=== PATIENT | female | born 1975 ===

== ENCOUNTER 2023-07-12 16:19 | Emergency (ER) | payer OTHER, SELFPAY ==
[2023-07-12 16:21] VITALS: BP 118/68; BMI 23.9
--- NOTE | 2023-07-12 16:55 | ED.GENMED ---
History of Present Illness
General
Chief Complaint: Crisis Evaluation
Source: patient
Exam Limitations: altered mental status
Time Seen by Provider: 07/12/23 16:41
Nursing documentation reviewed up to this point in time: agreed with
Travel History
Have you had any contact with someone who has COVID-19?: No
Do you have any symptoms of coronavirus? Fever > 100 degrees, chills, cough, shortness of breath, sore throat, loss of taste or smell, muscle aches, or headache?: No
History of Present Illness
History of Present Illness:
48-year-old female presents for medical clearance for psychiatric evaluation apparently told someone that she did not want to live anymore she tells me she does not need to take her psychiatric meds anymore does admit to drinking and smoking, she is
wearing a police uniform tells me is her sons, denies abdominal pain, denies fever
Past History
Past History
ED Past Medical History: Psychiatric
Social History
Tobacco: Smoker
Alcohol: Occasional
Drug: None
Living: with family
Review of Systems
Review of Systems
All Other Systems: Not applicable
Constitutional: Denies fever
ABD/GI: Reports no symptoms
: Reports no symptoms
Musculoskeletal: Reports no symptoms
Skin: Reports no symptoms
Psychiatric: Reports depression; Denies anxiety
Phy Exam
Physical Exam
Physical Exam:
Physical Exam
General: 48 female flat affect
Neck: No jaundice
Heart: Regular
Lungs: no acute respiratory distress.
Neuro: alert and oriented moves all extremities
Skin: no rash
Psychiatric: Affect is flat, appears depressed cooperative
Extremities: no edema.
Course
Orders/Labs/Results
Orders:
Orders
07/12/23 16:53
IV Insert/Care/Rem.- Treatment PRN
07/12/23 16:54
Crisis Consult Routine
Reason for Consult: 302
07/12/23 17:07
Acetaminophen Urgent
Alcohol Urgent
Complete Blood Count/With Diff Urgent
Comprehensive Metabolic Panel Urgent
Salicylate Urgent
07/12/23 18:11
Urine Drug Abuse Screen Urgent
Date Specimen was Collected: 07/12/23
Time Specimen was Collected: 18:07
07/13/23 00:46
Acetaminophen [Tylenol] 1,000 mg .ROUTE .STK-MED ONE
07/13/23 00:48
Acetaminophen [Tylenol] 1,000 mg PO NOW STA
07/13/23 06:23
PSYCHIATRY CONSULT Urgent
Consulting Provider: Raven Bernal
Was physician already notified: Yes
Reason for consult: suicidal ideation
07/13/23 13:53
Lorazepam [Ativan] 1 mg PO Q8HPRN PRN
07/13/23 22:00
Olanzapine [Zyprexa Zydis (Orally Disintegrating)] 5 mg PO HS
07/15/23 13:33
Acetaminophen [Tylenol] 650 mg PO NOW STA
Abnormal Lab Results
07/12/23
17:07
MCH 31.6 H pg
(27.0-31.0)
MPV 11.6 H fL
(7.4-10.4)
Sodium 134 L mmol/L
(135-145)
Creatinine 0.4 L mg/dL
(0.6-1.0)
Glucose 145 H mg/dl
(70-99)
AST 51 H U/L
(14-36)
ALT 37 H U/L
(0-35)
Salicylates < 1.0 L mg/dl
(2.0-20.0)
Acetaminophen < 10 L ug/ml
(10-30)
07/12/23 17:07
07/12/23 17:07
Vital Signs
Initial and Last Documented VS:
Initial Vital Signs
Temp Pulse Resp BP Pulse Ox
97.6 F 70 16 118/68 97
07/12/23 16:21 07/12/23 16:21 07/12/23 16:21 07/12/23 16:21 07/12/23 16:21
Last Documented Vital Signs
Temp Pulse Resp BP Pulse Ox
98.3 F 68 16 113/74 100
07/14/23 09:00 07/15/23 07:04 07/15/23 07:04 07/15/23 07:04 07/15/23 07:04
*Critical Care Note
Total Time (30-74mins, 75-104mins- exclusive of procedures): Not Applicable
ED Attending Note
-
Portions of this chart may have been created with voice recognition software.� Occasional wrong word or��sound alike� substitutions may have occurred due to the inherent limitations of voice recognition software.
Discharge Plan
Departure
Patient Disposition: Psych Facility
Date of Disposition: 07/12/23
Time of Disposition: 17:33
Discharge Problem:
Suicidal ideation
Prescriptions:
No Action
acetaminophen [Tylenol] 325 mg Tablet
650 mg PO Q6H PRN (Reason: mild pain)
bupropion HCl 150 mg Tablet Extended Release 24 Hr
150 mg PO DAILY
Patient Comments:
07/14/2023, pt. states to have a bottle of this med. laying around in her house. She does not take this med. on a routine basis. Pt. last filled this med. on 12/06/2022 for a 30-day supply.
cholecalciferol (vitamin D3) 125 mcg (5,000 unit) Tablet
125 mcg PO DAILY
Patient Comments:
07/14/2023, pt. states to take this whenever they remember to during the day.
Interventions
Interventions:
*Risk Screen - Suicide Last Done: 07/12/23 16:21
*General Assessment Last Done: 07/12/23 16:21
*Neglect/Abuse Screening Last Done: 07/12/23 16:21
ED- Fall Risk Assessment Last Done: 07/12/23 16:21
*ED COVID-19 Vaccine History Last Done: 07/12/23 16:21
*Nursing Disposition Last Done: 07/15/23 15:44
ED-Psychological Assessment Last Done: 07/12/23 16:21
Discharge Date and Time
Discharge Date/Time: 07/15/23 15:15
[2023-07-12 17:16] LABS: % Eosinophils 0.3 % (0-6); % Immature Granulocytes 0.2 % (0-0.5); % Monocytes 7.6 % (1.7-9.3); % Neutrophils 53.9 % (42.2-75.2); Absolute Basophils 0.1 10^3/uL (0-0.2); Absolute Lymphocytes 2.2 10^3/uL (1.2-3.4); Absolute Monocytes 0.5 10^3/uL (0.1-0.6); Absolute Neutrophils 3.3 10^3/uL (1.4-6.5); Hematocrit 41.1 % (37.0-47.0); Hemoglobin 14.5 g/dL (12.0-16.0); Mean Corp Hgb Conc. 35.3 g/dL (33.0-37.0); Mean Corpuscular Hgb 31.6 pg (27.0-31.0); Mean Corpuscular Volume 89.5 fL (81.0-99.0); Mean Platelet Volume 11.6 fL (7.4-10.4); Nucleated Red Blood Cells % 0 %; Platelet Count 253 10^3/uL (130-400); Red Blood Cell Count 4.59 10^6/uL (4.20-5.40); Red Cell Dist. Width 12.8 % (11.5-14.5); White Blood Cell Count 6.1 10^3/uL (4.8-10.8)
[2023-07-12 17:27] LABS: ALT (SGPT) 37 U/L (0-35); AST (SGOT) 51 U/L (14-36); Acetaminophen < 10 ug/ml (10-30); Albumin 4.2 g/dl (3.5-5.0); Alkaline Phosphatase 76 U/L (38-126); Blood Urea Nitrogen 8 mg/dl (7-17); Carbon Dioxide 28 mmol/L (22-30); Chloride 104 mmol/L (98-107); Estimated Creatinine Clearance 98 ml/min; Glucose 145 mg/dl (70-99); Potassium 3.5 mmol/L (3.5-5.1); Salicylate < 1.0 mg/dl (2.0-20.0); Sodium 134 mmol/L (135-145); Total Bilirubin 0.8 mg/dl (0.2-1.3); Total Protein 7.1 g/dl (6.3-8.2); eGFR > 60.00
[2023-07-12 18:38] LABS: Amphetamines Negative (Negative); Barbiturates Negative (Negative); Benzodiazepines Negative (Negative); Buprenorphine Negative (Negative); Cocaine Negative (Negative); Marijuana Negative (Negative); Methadone Negative (Negative); Methamphetamines Negative (Negative); Opiates Negative (Negative); Phencyclidine Negative (Negative); Tricyclic Antidepressants Negative (Negative)
--- NOTE | 2023-07-13 | EDRN ---
Report received patient talking with security
[2023-07-13] MEDS: TYLENOL 1000 MG PO (00:51)
--- NOTE | 2023-07-13 00:55 | EDRN ---
Patient had complained of headache, gave her tylenol, she also asked for some coffee and something to eat, 1:1 maintained with safe environment
--- NOTE | 2023-07-13 03:27 | EDRN ---
patient asking for some juice, went in to give her some juice and she was asleep, placed cup on bedside for her, 1:1 maintained
[2023-07-13 05:01] VITALS: BP 115/69
--- NOTE | 2023-07-13 06:20 | ED.CRISIS ---
ED Crisis Note
ED Crisis Note
Subjective:
Pt offers no complaints.
Objective:
Per staff and during observation, patient with continuous conversation to oneself. Stable vital signs.
Assessment/Plan:
302 petition filed and upheld by tele-psychiatry. Awaiting psychiatry evaluation in AM.
[2023-07-13 09:16] VITALS: BP 112/70
--- NOTE | 2023-07-13 09:18 | EDRN ---
assumed care of pt @ this time. pt eating breakfast. VS obtained. pt pleasant with staff. denies needs @ this time. speaking clear complete sentences. pt denies needing to use bathroom. Security outside room state pt is safe to walk to and from
bathroom and is able to make needs known. Crisis updated this RN on plan of care for pt.
--- NOTE | 2023-07-13 11:46 | EDRN ---
pt ambulated to use bathroom.
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
--- NOTE | 2023-07-13 14:32 | CHAP ---
Called by the Crisis team to visit with Terrence, who welcomed me graciously, while eating her breakfast. She told me she is 'a child of God, loved by Him, here to fulfill His purpose.' She calls herself Bengali ('I have no parents.') She ,
had two children, one of whom was a [place] chief technology officer, killed by gunshot she says. She grieves for this son, crying during our visit, but she believes they are still very much connected in the Lord. She says she 'knows everything,' talks
about good and evil, making many arm and hand movements while telling the story. She tried to find half-way at '[facility],' but says they had no room. I listened over an hour to her story and talked with her about her beliefs, about the loss
of her son, and the meaning that has in her life. I read Psalm 23, which she recited along with me, and we prayed together. She was very receptive to the prayer, and joined in as I prayed Our Father and offered her and her needs to God, asking His
blessings. She looked tired, and I asked if she wanted to rest - she did. She asked how she could contact us in [facility], and I gave her our card. She thanked me sincerely for coming and listening - I gave her a hug.
--- NOTE | 2023-07-13 15:26 | EDRN ---
pt ate all lunch provided to her and given warm tea. pt remains awake and talking. denies needs @ this time.
--- NOTE | 2023-07-13 16:26 | EDRN ---
pt given water per request. sitting in chair. denies needs.
--- NOTE | 2023-07-13 19:13 | EDRN ---
pt ambulated to and from bathroom. pt ate entire dinner. pt remains singing to self calmly in bed.
[2023-07-13] MEDS: ZYPREXA ZYDIS (ORALLY DISINTEGRATING) PO (22:35)
--- NOTE | 2023-07-13 22:50 | EDRN ---
RN attempted to medicate pt. per AUG orders, pt. refused 2199 medications, stating, 'I don't need that, if you want to give it to me you will have to restrain me, this is against my will'. Pt. otherwise cooperative. Doctor to be notified.
--- NOTE | 2023-07-13 22:52 | EDRN ---
RN attempted to medicate pt. per MAR orders, pt. refused, stating, 'I don't want to take that, I don't need it, you will have to restrain me if you want me to take that against my will'. Pt. otherwise cooperative, laying on stretcher calmly.
--- NOTE | 2023-07-13 23:00 | EDRN ---
Report received, patient resting comfortably 1:[address], safe environment maintained
--- NOTE | 2023-07-14 01:00 | EDRN ---
Patient is resting at this time, no complaints at this time, will continue to monitor.
--- NOTE | 2023-07-14 03:01 | EDRN ---
Patient is sleeping at this time, 1:1 maintained, will continue to monitor
[2023-07-14 09:00] VITALS: BP 107/80
--- NOTE | 2023-07-14 09:00 | EDRN ---
Received patient on stretcher eating breakfast. Patient is calm and cooperative. Denies any thoughts of suicide at this time.
--- NOTE | 2023-07-14 09:15 | PHANOTE ---
Addendum entered by Paul Hernandez 07/14/23 09:20:
07/14/2023, med [employer] tech, pt. last filled her Bupropion 150 mg ER 24hr on 12/06/2022 for a 30-day supply.
Original Note:
07/14/2023, med rec tech, spoke to pt. to obtain their med. history; pt. states to have received a few tablets of her friend's Bupropion 100 mg and has taken some recently but she has an old prescription for Bupropion 150 mg ER 24hr at home.
--- NOTE | 2023-07-14 09:29 | EDRN ---
Report received at shift change, pt on 1:1 for SI. Awake, alert, calm and cooperative. Ate breakfast.
[2023-07-14] MEDS: ATIVAN 1 MG PO (13:53)
--- NOTE | 2023-07-14 13:54 | EDRN ---
Pt asked for PRN Ativan, calm and cooperative, eating lunch
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
[2023-07-14] MEDS: ZYPREXA ZYDIS (ORALLY DISINTEGRATING) 5 MG PO (21:50)
--- NOTE | 2023-07-14 23:00 | EDRN ---
Report received, patient resting comfortably, 1:1 maintained
--- NOTE | 2023-07-15 01:47 | EDRN ---
Patient has been sleeping, 1:1 has been maintained, will continue to monitor
--- NOTE | 2023-07-15 06:27 | EDRN ---
Patient remains asleep, 1:1 maintained, will continue to monitor for needs
--- NOTE | 2023-07-15 06:31 | EDRN ---
Patient remains asleep, no update on placement
[2023-07-15 07:04] VITALS: BP 113/74
--- NOTE | 2023-07-15 12:19 | EDRN ---
Pt asking for Wellbutrin, states she takes it every day, per Dr. Child, psychiatry does not recommend for her to take the med.
[2023-07-15] MEDS: TYLENOL 650 MG PO (13:36)
== END 2023-07-15 15:15 ==
LOC: EMR 16:19
PROVIDERS: CONSULT PHYSICIAN Psychiatry & Neurology Psychiatry; EMERGENCY PHYSICIAN Emergency Medicine
DX: R45.851 Suicidal ideations (principal); F17.200 Nicotine dependence, unspecified, uncomplicated
CPT/HCPCS: 99285; 80053; 80143; 80179; 80306; 82077; 85025